=== PATIENT | female | born 2000 | race Caucasian/White ===

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

== ENCOUNTER 2024-09-08 00:18 | Emergency (ER) | payer OTHER ==
[2024-09-08 00:24] VITALS: BP 134/89; PULSE 97; RESP 16; TEMP 98.8; BMI 26.4
[2024-09-08 03:39] LABS: HIV INTERPRETATION NEGATIVE (NEGATIVE)
== END 2024-09-08 00:43 | disposition home or self-care (01) ==
LOC: FER 00:18
DX: Z11.4 Encounter for screening for human immunodeficiency virus [HIV] (principal)
CPT/HCPCS: 36415; 86803; 87389; 99283-25